=== PATIENT | female | born 1975 | race Two or more races ===

== ENCOUNTER → 2025-01-21 | Outpatient (CLI) | payer BC, OTHER, SELFPAY ==
[2025-01-21 08:16] LABS: Collection Type, Urine Clean Catch
[2025-01-21 08:40] LABS: Bilirubin,Urine Negative (Negative); Blood,Urine Negative (Negative); Clarity,Urine Clear (Clear/Hazy); Color,Urine Lt-Yellow (Lt Yel-Yel); Glucose, Urine Negative (Negative); Ketones,Urine Negative (Negative); Leukocyte Esterase,Urine Negative (Negative); Nitrite,Urine Negative (Negative); PH,Urine 6.5 (5.0-7.0); Protein,Urine Negative (Neg - Trace); RBC,Urine 3 /hpf (0-3); Specific Gravity,Urine 1.014 (1.001-1.035); Squamous Epithelial Cell,Urine 1 /hpf (0-5); Urobilinogen,Urine Negative mg/dL (0.0-1.0); WBC,Urine 1 /hpf (0-5)
[2025-01-21 08:42] LABS: Basophils % (Auto) 1 % (0-2.5); Eosinophils # (Auto) 0.1 Thou/mm3 (0.0-0.5); Eosinophils % (Auto) 1 % (0-10); Hematocrit 44.3 % (36.0-46.0); Hemoglobin 14.7 g/dL (12.0-16.0); Immature Granulocytes % (Auto) 0 % (0-0); Immature Granulocytes Auto 0.01 Thou/mm3 (0.00-0.00); Lymphocytes # (Auto) 2.3 Thou/mm3 (1.0-4.8); Lymphocytes % (Auto) 35 % (10-50); Mean Corpuscular HGB Conc 33.2 g/dl (31.0-37.0); Mean Corpuscular Hemoglobin 29.8 pg (25.0-35.0); Mean Corpuscular Volume 90 fL (80-100); Monocytes # (Auto) 0.4 Thou/mm3 (0.0-0.8); Monocytes % (Auto) 6 % (0-12); Neutrophils # (Auto) 3.8 Thou/mm3 (1.8-7.7); Neutrophils % (Auto) 57 % (37-80); Nucleated Red Blood Cell % 0 /100 WBC (0); Platelet Count 272 Thou/mm3 (140-440); RDW Standard Deviation 39.4 fL (36.4-46.3); Red Blood Count 4.94 Miln/mm3 (4.00-5.20); White Blood Count 6.6 Thou/mm3 (3.6-11.0)
[2025-01-21 08:49] LABS: Glucose Estimated Average 111 mg/dL (80-131); Hemoglobin A1C 5.5 % Hgb (4.8-6.0)
[2025-01-21 08:58] LABS: Vitamin B12 656 pg/mL (211-911)
[2025-01-21 09:11] LABS: Alanine Aminotransferase 31 U/L (10-49); Albumin, Serum 4.6 gm/dL (3.5-5.0); Albumin/Globulin Ratio 1.8 (1.2-2.2); Alkaline Phosphatase 149 U/L (46-116); Anion Gap 8 (7-16); Aspartate Amino Transferase 24 U/L (0-34); BUN/Creatinine Ratio 23 Ratio (12-20); Bilirubin,Total 0.5 mg/dL (0.3-1.2); Blood Urea Nitrogen 16 mg/dL (9-23); Calcium 9.5 mg/dL (8.3-10.6); Calcium (Corrected) 9.5 mg/dL (8.5-10.1); Carbon Dioxide 28.9 mMol/L (20.0-31.0); Cardiac Risk Estimate 3.4 RATIO (3.7-5.6); Chloride 104 mMol/L (98-107); Cholesterol 209 mg/dL (132-200); Creatinine (Component) 0.7 mg/dL (0.6-1.3); Globulin 2.6 gm/dL (2.3-3.5); Glucose 93 mg/dL (74-106); HDL Cholesterol 61 mg/dL (40-60); LDL Cholesterol,Calculated 122 mg/dL (0-130); Osmolality,Calculated 282 (275-295); Potassium 4.2 mMol/L (3.4-5.1); Sodium 141 mMol/L (136-145); Thyroid Stimulating Hormone 2.64 uIU/mL (0.55-4.78); Total Protein 7.2 gm/dL (5.7-8.2); Triglycerides 132 mg/dL (30-150); Uric Acid 4.5 mg/dL (3.1-7.8); eGFR > 60 See Note
== END | disposition home or self-care (01) ==
LOC: COPL 07:33
PROVIDERS: PCP Internal Medicine; Referring Provider Internal Medicine; Visit Provider Internal Medicine
DX: Z00.00 Encounter for general adult medical examination without abnormal findings (principal)
CPT/HCPCS: 36415; 80053; 80061; 81001; 82306; 82607; 83036; 84443; 84550; 85025

== ENCOUNTER 2025-02-04 19:18 | Emergency (ER) | payer BC, OTHER, SELFPAY ==
[2025-02-04 19:21] VITALS: BMI 27.4
[2025-02-04 20:40] VITALS: BP 132/88; PULSE 79; RESP 16; TEMP 36.6; O2SAT 99
--- NOTE | 2025-02-04 21:20 | PD.EDRME ---
Rapid Medical Screening Exam RME Arrival date/time: 02/04/25 19:18 Chief Complaint: Abdominal Pain Time Seen by Provider: 02/04/25 20:28 Vital signs: Vital Signs Temperature 97.8 F 02/04/25 20:40 Pulse Rate 79 02/04/25 20:40 Respiratory Rate 16 02/04/25 20:40 Blood Pressure 132/88 H 02/04/25 20:40 Pulse Oximetry (%) 99 02/04/25 20:40 Oxygen Delivery Method Room Air 02/04/25 20:40 Vital signs reviewed by provider: Yes RME Narrative: 49-year-old female presents with a 3-week history of worsening lower abdominal pain. She has a history of diverticulosis. She denies any vomiting but has had nausea. She denies any fever or chills or any upper respiratory complaints. Today while using the bathroom, she noticed mucousy stool with blood streaks and she became concerned. I have greeted and performed a focused initial assessment of this patient. A comprehensive ED assessment and evaluation of the patient, analysis of all test results, and completion of the medical decision making process will be conducted by additional ED providers.
--- NOTE | 2025-02-04 21:21 | XR_ITS ---
Examination: CT abdomen with intravenous contrast CT pelvis with intravenous contrast 2-D coronal reconstructions 2-D sagittal reconstructions Date and time of exam:February 04, 2025 11:41 AM Comparison July 08, 2024 Indications: Abdominal pain beginning 3 weeks ago. CTDI: vol (mGy) 10.9 DLP: (mGycm) 546 Technique: Multiple axial sections of the abdomen and pelvis have been obtained. 64 slice high-resolution scanner used. 3 mm axial sections have been obtained, post intravenous injection 60 cc [id number] 2-D sagittal, coronal reconstructions obtained. Low dose protocols were performed. One or more of the following dose reduction techniques were used; automated exposure control, adjustment of the mA and/or KV according to patient size, use of iterative reconstruction technique. Findings: No focal liver or splenic lesion. Contracted gallbladder. No pancreatic or adrenal mass. No renal or ureteral calculi, no hydronephrosis 10 mm fat-containing umbilical hernia. Aorta normal size. Normal appendix. Colonic diverticulosis, no diverticulitis Anteverted uterus with no pelvic mass Bladder intact Advanced disc narrowing L5-S1 Impression: No renal or ureteral calculi, no hydronephrosis Normal appendix No bowel obstruction Colonic diverticulosis, no diverticulitis
[2025-02-04 22:06] LABS: Basophils % (Auto) 0 % (0-2.5); Eosinophils # (Auto) 0.1 Thou/mm3 (0.0-0.5); Eosinophils % (Auto) 1 % (0-10); Hematocrit 42.3 % (36.0-46.0); Hemoglobin 14.3 g/dL (12.0-16.0); Immature Granulocytes % (Auto) 0 % (0-0); Immature Granulocytes Auto 0.02 Thou/mm3 (0.00-0.00); Lymphocytes # (Auto) 2.6 Thou/mm3 (1.0-4.8); Lymphocytes % (Auto) 28 % (10-50); Mean Corpuscular HGB Conc 33.8 g/dl (31.0-37.0); Mean Corpuscular Hemoglobin 30.4 pg (25.0-35.0); Mean Corpuscular Volume 90 fL (80-100); Monocytes # (Auto) 0.6 Thou/mm3 (0.0-0.8); Monocytes % (Auto) 7 % (0-12); Neutrophils # (Auto) 5.8 Thou/mm3 (1.8-7.7); Neutrophils % (Auto) 64 % (37-80); Nucleated Red Blood Cell % 0 /100 WBC (0); Platelet Count 262 Thou/mm3 (140-440); RDW Standard Deviation 39.6 fL (36.4-46.3); Red Blood Count 4.71 Miln/mm3 (4.00-5.20); White Blood Count 9.1 Thou/mm3 (3.6-11.0)
[2025-02-04 22:10] LABS: Collection Type, Urine Clean Catch
[2025-02-04 22:20] LABS: HCG Qualitative,Urine Negative
[2025-02-04 22:21] LABS: Bilirubin,Urine Negative (Negative); Blood,Urine Negative (Negative); Clarity,Urine Clear (Clear/Hazy); Color,Urine Lt-Yellow (Lt Yel-Yel); Glucose, Urine Negative (Negative); Ketones,Urine Negative (Negative); Leukocyte Esterase,Urine Negative (Negative); Nitrite,Urine Negative (Negative); PH,Urine 6.5 (5.0-7.0); Protein,Urine Negative (Neg - Trace); RBC,Urine 8 /hpf (0-3); Specific Gravity,Urine 1.025 (1.001-1.035); Squamous Epithelial Cell,Urine 1 /hpf (0-5); Urobilinogen,Urine Negative mg/dL (0.0-1.0); WBC,Urine 2 /hpf (0-5)
[2025-02-04 23:09] LABS: Alanine Aminotransferase 23 U/L (10-49); Albumin, Serum 4.8 gm/dL (3.5-5.0); Albumin/Globulin Ratio 1.7 (1.2-2.2); Alkaline Phosphatase 155 U/L (46-116); Amylase 119 U/L (30-118); Anion Gap 9 (7-16); Aspartate Amino Transferase 21 U/L (0-34); BUN/Creatinine Ratio 21 Ratio (12-20); Bilirubin,Total 0.2 mg/dL (0.3-1.2); Blood Urea Nitrogen 15 mg/dL (9-23); C-Reactive Protein 0.6 mg/dL (0.0-0.9); Calcium 10.1 mg/dL (8.3-10.6); Calcium (Corrected) 10.1 mg/dL (8.5-10.1); Carbon Dioxide 28.3 mMol/L (20.0-31.0); Chloride 108 mMol/L (98-107); Creatinine (Component) 0.7 mg/dL (0.6-1.3); Estimated Creatinine Clearance 90.4 mL/min (>60); Globulin 2.9 gm/dL (2.3-3.5); Glucose 106 mg/dL (74-106); Lipase 34 U/L (12-53); Osmolality,Calculated 289 (275-295); Potassium 4.4 mMol/L (3.4-5.1); Sodium 145 mMol/L (136-145); Total Protein 7.7 gm/dL (5.7-8.2); eGFR > 60 See Note
[2025-02-04] MEDS: SODIUM CHLORIDE 0.9% 1000 ML 1,000 ML 125 ML IV (23:57)
[2025-02-05 02:00] VITALS: RESP 18
--- NOTE | 2025-02-05 02:00 | EDNOTE_ITS ---
ED General RME/HPI General Chief complaint: Abdominal Pain Stated complaint: ABD PAIN Time Seen by Provider: 02/04/25 20:28 Arrival date/time: 02/04/25 19:18 RME / HPI RME / HPI narrative: 49-year-old female presents with a 3-week history of worsening lower abdominal pain. She has a history of diverticulosis. She denies any vomiting but has had nausea. She denies any fever or chills or any upper respiratory complaints. Today while using the bathroom, she noticed mucousy stool with blood streaks and she became concerned. Related Data Home Medications ?Medication ?Instructions ?Recorded ?Confirmed alprazolam 0.25 mg tablet (Xanax) 0.25 mg PO PRN PRN A nxiety 08/09/20 06/01/22 nortriptyline 25 mg capsule 25 mg PO QDAY 03/10/22 Previous Rx's ?Medication ?Instructions ?Recorded hydrocodone 5 mg-acetaminophen 325 1 tab PO BID PRN pa in #14 tabs 06/01/22 mg tablet ibuprofen 600 mg tablet 600 mg PO TID PRN Abdominal Pain 06/01/22 #30 tabs ciprofloxacin HCl 500 mg tablet 500 mg PO BID #20 tabs 03/12/23 Allergies Allergy/AdvReac Type Severity Reaction Status Date / Time azithromycin Allergy Severe hives Verified 02/04/25 19:19 Review of Systems Review of Systems Systems Reviewed: All systems reviewed, normal except as documented Past Medical History Past Medical History NEUROLOGIC: Negative Neurological Disorders, Cerebrovascular Accident or Alzheimer's Disease CARDIAC: Negative Cardiac Disorders, Cardiac Arrhythmia, Heart Murmur, Peripheral Vascular Disease or Congestive Heart Failure RESPIRATORY: Negative Chronic Obstructive Pulmonary Disease (COPD), Asthma or Emphysema GASTROINTESTINAL: Positive Diverticulitis and Ulcer; Negative Gastrointestinal Disorders, Liver Cancer or Pancreatic Cancer GENITOURINARY: Positive Kidney Stones; Negative Genitourinary Disorders or Renal Disease ENT: Negative Blind or Deafness ENDOCRINE: Negative Endocrine Disorders, Diabetes Mellitus Type 1 or Diabetes Mellitus Type 2 HEMATOLOGIC: Negative Sickle Cell Disease PSYCHO/SOCIAL: Positive Anxiety; Negative Psychiatric Problems OTHER HISTORY: Negative Down Syndrome or Developmental Delay Social History SMOKING STATUS: Never smoker ED Exam Narrative Physical exam: Alert and oriented, 49-year-old female, no acute distress. Vital signs blood pressure 132/88, pulse 79, respirations 16 and nonlabored, temperature 98.7 0.8, O2 sat 99% on room air. Lungs are clear, regular rate and rhythm, abdomen is soft with mild generalized tenderness, worse in the lower abdomen. No rebound or guarding is noted. Course Course Course Narrative: Labs reveal a normal white count of 9.1, normal H&H and normal platelets. CRP is normal at 0.6. Chemistry panel reveals normal electrolytes, normal BUN and creatinine, normal AST and ALT, normal lipase of 34, minimally elevated amylase at 119. Urinalysis reveals no infection. And urine hCG is negative. CT of the abdomen and pelvis reveals: No renal or ureteral calculi, no hydronephrosis. Normal appendix. No bowel obstruction. Colonic diverticulosis, no diverticulitis. Patient was given 1 L of sodium chloride IV. Quality Measures none Orders Category Date Time Status CT Screening NOW Care 02/04/25 21:[address] Screening X1 Care 02/04/25 21:21 Completed NPO STAT Care 02/04/25 21:[address] abdomen pelvis w con Stat Exams 02/04/25 21:21 Completed Amylase Stat Lab 02/04/25 21:57 Completed CBC Stat Lab 02/04/25 21:57 Completed CRP [C-Reactive Protein] Stat Lab 02/04/25 21:57 Completed Comprehensive Metabolic Panel Stat Lab 02/04/25 21:57 Completed HCG Qualitative,Urine Stat Lab 02/04/25 21:58 Completed Lipase Stat Lab 02/04/25 21:57 Completed Urinalysis Stat Lab 02/04/25 21:58 Completed Sodium Chloride 0.9% 1000 ml [Ns] 1,000 ml Med 02/04/25 21:25 Discontinued IV 125 mls/hr Vital Signs Vital signs: Vital Signs Temperature 97.8 F 02/04/25 20:40 Pulse Rate 79 02/04/25 20:40 Respiratory Rate 16 02/04/25 20:40 Blood Pressure 132/88 H 02/04/25 20:40 Pulse Oximetry (%) 99 02/04/25 20:40 Oxygen Delivery Method Room Air 02/04/25 20:40 Discharge Plan Plan Patient Disposition: HOME (Self Care) Discharge Disposition comment: Stable and improved Prescriptions/Referrals Prescriptions/Med Rec: No Action hydrocodone-acetaminophen 5-325 mg tablet 1 tab PO BID MDD 4 PRN (Reason: pain) Qty: 14 0RF ibuprofen 600 mg tablet 600 mg PO TID PRN (Reason: Abdominal Pain) Qty: 30 0RF alprazolam [Xanax] 0.25 mg Tablet 0.25 mg PO PRN PRN (Reason: Anxiety) nortriptyline 25 mg Capsule 25 mg PO QDAY ciprofloxacin HCl 500 mg tablet 500 mg PO BID Qty: 20 0RF Referrals: No Primary/Family,Physician [Primary Care Provider] - In 1 week Problem List Clinical Impression: Diverticulosis of colon Patient/Caregiver Discharge Instructions Education Materials: ED Diverticulosis Additional Instructions: Follow-up with your primary care physician in 24 to 48 hours. Return to the ED for any new or worsening symptoms. Print Language: Syriac Stand Alone Forms: [employer] Award Info., Patient Portal Info Letter PA/MEGAN Supervising Physician PA/MEGAN Supervising Physician: Dr. Emir DAUGHERTY Narrative [facility] hospital course: 49-year-old female presents with a 3-week history of worsening lower abdominal pain. She has a history of diverticulosis. She denies any vomiting but has had nausea. She denies any fever or chills or any upper respiratory complaints. Today while using the bathroom, she noticed mucousy stool with blood streaks and she became concerned. Alert and oriented, 49-year-old female, no acute distress. Vital signs blood pressure 132/88, pulse 79, respirations 16 and nonlabored, temperature 98.7 0.8, O2 sat 99% on room air. Lungs are clear, regular rate and rhythm, abdomen is soft with mild generalized tenderness, worse in the lower abdomen. No rebound or guarding is noted. Labs reveal a normal white count of 9.1, normal H&H and normal platelets. CRP is normal at 0.6. Chemistry panel reveals normal electrolytes, normal BUN and creatinine, normal AST and ALT, normal lipase of 34, minimally elevated amylase at 119. Urinalysis reveals no infection. And urine hCG is negative. CT of the abdomen and pelvis reveals: No renal or ureteral calculi, no hydronephrosis. Normal appendix. No bowel obstruction. Colonic diverticulosis, no diverticulitis. Patient was given 1 L of sodium chloride IV. Patient was discharged home in stable and improved condition. Clinical Information Provided by patient Medical Records Reviewed None Meds/Rx Considered, not Ordered None Labs/Rad/Tests considered, not Ordered None Chronic Illness/Social Conditions which may negatively complicate care or outcome(s)-explain: None or not applicable EKG EKG not done Lab Interpretation Labs: see narrative above Imaging Imaging interpretation: see narrative above Medication Administration(s) Medication Administration History Discontinued Medications Sodium Chloride (Ns) 1,000 mls @ 125 mls/hr IV .Q8H ONE Stop: 02/05/25 05:24 Last Infusion: 02/05/25 00:37 Dose: 125 mls/hr Documented By: Admin: 02/04/25 23:57 Dose: 125 mls/hr Documented By: Sodium chloride 1 L IV Diagnosis Most likely dx, and/or detailed dx discussion: Diverticulosis without diverticulitis. Dispositon Disposition: Discharge Home
== END 2025-02-05 02:01 | disposition home or self-care (01) ==
PROVIDERS: Physician Assistant; Emergency Provider Emergency Medicine
DX: K57.30 Diverticulosis of large intestine without perforation or abscess without bleeding (principal)
CPT/HCPCS: 36415; 74177; 80053; 81001; 81025; 82150; 83690; 85025; 86140; 96360; 99285; A4649; J7030; Q9967

== ENCOUNTER → 2025-06-23 | Outpatient (CLI) | payer BC, OTHER, SELFPAY ==
[2025-06-23 08:14] LABS: Collection Type, Urine Clean Catch
[2025-06-23 09:00] LABS: Alanine Aminotransferase 24 U/L (10-49); Albumin, Serum 5.0 gm/dL (3.5-5.0); Albumin/Globulin Ratio 2.0 (1.2-2.2); Alkaline Phosphatase 138 U/L (46-116); Anion Gap 11 (7-16); Aspartate Amino Transferase 14 U/L (0-34); BUN/Creatinine Ratio 14 Ratio (12-20); Bilirubin,Total 0.4 mg/dL (0.3-1.2); Blood Urea Nitrogen 11 mg/dL (9-23); Calcium 10.7 mg/dL (8.3-10.6); Calcium (Corrected) 10.7 mg/dL (8.5-10.1); Carbon Dioxide 27.5 mMol/L (20.0-31.0); Chloride 105 mMol/L (98-107); Creatinine (Component) 0.8 mg/dL (0.6-1.3); Globulin 2.5 gm/dL (2.3-3.5); Glucose 98 mg/dL (74-106); Osmolality,Calculated 284 (275-295); Potassium 4.3 mMol/L (3.4-5.1); Sodium 143 mMol/L (136-145); Thyroid Stimulating Hormone 2.84 uIU/mL (0.55-4.78); Total Protein 7.5 gm/dL (5.7-8.2); eGFR > 60 See Note
[2025-06-23 09:07] LABS: Follicle Stimulating Hormone 118.77 mIU/mL (See Note)
[2025-06-23 09:21] LABS: Bilirubin,Urine Negative (Negative); Blood,Urine Negative (Negative); Clarity,Urine Clear (Clear/Hazy); Color,Urine Colorless (Lt Yel-Yel); Glucose, Urine Negative (Negative); Ketones,Urine Negative (Negative); Leukocyte Esterase,Urine Negative (Negative); Nitrite,Urine Negative (Negative); PH,Urine 6.5 (5.0-7.0); Protein,Urine Negative (Neg - Trace); RBC,Urine < 1 /hpf (0-3); Specific Gravity,Urine 1.005 (1.001-1.035); Squamous Epithelial Cell,Urine 2 /hpf (0-5); Urobilinogen,Urine Negative mg/dL (0.0-1.0); WBC,Urine < 1 /hpf (0-5)
[2025-07-01 17:50] LABS: EBV EBNA Ab (IgG) 144.00 U/mL; EBV VCA Ab (IgG) >750.00 U/mL; EBV VCA Ab (IgM) <36.00 U/mL
[2025-07-02 06:27] LABS: EBV Ab Interpretation PAST; Estrogen, Total, Serum* 104 pg/mL; Luteinizing Hormone* 76.1 mIU/mL; Progesterone,LC/MS* 0.1 ng/mL
== END | disposition home or self-care (01) ==
LOC: COPL 07:39
PROVIDERS: PCP Internal Medicine; Referring Provider Internal Medicine; Visit Provider Internal Medicine
DX: R53.83 Other fatigue (principal)
CPT/HCPCS: 36415; 80053; 81001; 82672; 83001; 83002; 84144; 84443; 86664; 86665

== ENCOUNTER → 2025-09-23 | Outpatient (CLI) | payer BC, OTHER, SELFPAY ==
--- NOTE | 2025-09-23 08:45 | XR_ITS ---
Examination: Breast ultrasound complete, bilateral Date and time of exam: September 23, 2025, 0907 hours INDICATIONS: Mammogram March 26, 2024 4 mm focal asymmetry upper outer left breast anterior depth Technique: Real-time grayscale ultrasonographic imaging bilateral breasts, including all 4 quadrants as well as nipple retroareolar and axillary regions. Findings: Sonographic images right breast Benign cysts 2:00 circumscribed nodule 7 x 7 mm Sonographic images left breast Benign cysts, the largest in the 11 o'clock position 6 x 5 mm Smaller bilateral cysts, and dilated ducts IMPRESSION: BI-RADS Category 3: Probably benign findings Recommend 1 additional 6-month right breast sonogram follow-up to document stability of 2:00 nodule right breast described above
--- NOTE | 2025-09-23 09:45 | XR_ITS ---
Examination: Screening digital mammography, bilateral Computer aided detection 3-D breast Tomosynthesis, bilateral Date and time of exam: 09/23/2025, 9:26 a.m. Comparisons: 03/26/2024 Indications: Screening Technique: Nonmagnified MLO, CC views of the breasts to been obtained, reconstructed from 3-D Tomosynthesis images. R2 computer aided detection program utilized for evaluation of suspicious masses and/or abnormal calcifications. 3-D Tomosynthesis images obtained. Technologist: Findings: The breasts are heterogeneously dense, which may obscure small masses. No evidence of abnormal masses or suspicious calcifications. Impression: BI-RADS category 1: Negative findings (within normal) Recommend 1 year follow-up mammogram
== END | disposition home or self-care (01) ==
PROVIDERS: PCP Internal Medicine; Referring Provider Internal Medicine; Visit Provider Internal Medicine
DX: Z12.31 Encounter for screening mammogram for malignant neoplasm of breast (principal); R92.313 Mammographic fatty tissue density, bilateral breasts; N63.12 Unspecified lump in the right breast, upper inner quadrant
CPT/HCPCS: 76641; 77063; 77067